=== PATIENT | female | born 1960 | race Caucasian/White ===

== ENCOUNTER 2017-04-15 13:14 | Emergency (ER) | payer SELFPAY ==
[2017-04-15] MEDS ORDERED: HYDROcodone/Acetaminophen 5/325 mg Tablet ONE (14:23)
[2017-04-15] MEDS ORDERED: Azithromycin 250 MG TAB ONE (14:24)
[2017-04-15] MEDS ORDERED: Benzonatate 100 MG CAP ONE (14:24)
[2017-04-15] MEDS ORDERED: Dexamethasone 4 MG TAB ONE (14:24)
--- NOTE | 2017-04-15 14:31 | RAD ---
2 VIEWS CHEST: Date: 04/15/17 COMPARISON: 07/14/13. HISTORY: Cough. FINDINGS: There is increased linear interstitial density within both lungs with an upper lobe predominance, rig ht greater than left, stable. The lungs are hyperinflated, evidence of air trapping. No pneumothorax or pleural fluid. No focal consolidation or alveolar edema. IMPRESSION: Diffuse interstitial prominence with pulmonary hyperinflation, stable. Findings suggest stable COPD. No lobar consolidation or alveolar edema. POS: [facility]
== END 2017-04-15 14:40 | disposition home or self-care (01) ==
LOC: MADERS 13:14
DX: J20.9 Acute bronchitis, unspecified (principal); I10 Essential (primary) hypertension; J44.9 Chronic obstructive pulmonary disease, unspecified; F17.210 Nicotine dependence, cigarettes, uncomplicated; F32.9 Major depressive disorder, single episode, unspecified; F41.9 Anxiety disorder, unspecified; Z79.899 Other long term (current) drug therapy
CPT/HCPCS: 71046; J8540

== ENCOUNTER 2025-01-27 12:15 | Emergency (ER) | payer BC, MEDICARE ==
[2025-01-27] MEDS ORDERED: Ketorolac Tromethamine 30 MG (1 mL) VIAL ONE (13:17)
[2025-01-27] MEDS ORDERED: predniSONE 20 MG TAB ONE (13:17)
[2025-01-27 13:23] LABS: CAUTI Indications for Culture Pelvic or flank pain; Glucose, Urine (Dipstick) Negative (Negative); Leukocyte Trace (Negative); Protein, Urine (Dipstick) Negative (Neg-Trace); RBC/HPF 0-3 HPF (0-3); Specific Gravity, Urine 1.020 (1.005-1.030)
[2025-01-27 13:25] LABS: Bacteria/HPF Rare-Few HPF (None Seen); Urine Culture Reflex No No
== END 2025-01-27 13:51 | disposition home or self-care (01) ==
LOC: MADERS 12:15
DX: M54.50 Low back pain, unspecified (principal); J44.9 Chronic obstructive pulmonary disease, unspecified; I10 Essential (primary) hypertension; F17.210 Nicotine dependence, cigarettes, uncomplicated; Z79.899 Other long term (current) drug therapy; X50.0XXA Overexertion from strenuous movement or load, initial encounter
CPT/HCPCS: 81001; 96372; 99283; J1885; J7512